=== PATIENT | female | born 1990 | race Caucasian/White ===

== ENCOUNTER 2016-06-04 13:49 | Observation (INO) | payer MEDICAID ==
[~2016-06-04] VITALS: Ht 172.7 cm; Wt 120.7 kg
[~2016-06-04 13:49] MED LIST: NITR100C
[2016-06-04] MEDS ORDERED: FERR-63 PO (15:02)
[2016-06-04] MEDS ORDERED: PNV1TABL76 PO (15:02)
[2016-06-04] MEDS ORDERED: FOLI-43 PO (15:02)
[2016-06-04] MEDS ORDERED: OCD PO (15:02)
== END 2016-06-04 15:45 | disposition home or self-care (01) ==
LOC: L&D 13:49
PROVIDERS: ADMIT Obstetrics & Gynecology; ATTEND Obstetrics & Gynecology
DX: Z34.90 Encounter for supervision of normal pregnancy, unspecified, unspecified trimester (principal)
CPT/HCPCS: 99281; G0378

== ENCOUNTER 2023-07-03 14:14 | Emergency (ER) | payer MEDICAID ==
[~2023-07-03 14:14] MED LIST changes: +FERR-63 PO; +FOLI-43 PO; -NITR100C; +OCD PO; +PNV1TABL76 PO
[2023-07-03 14:42] VITALS: PULSE 79; RESP 18
== END 2023-07-03 15:20 | disposition left against medical advice (07) ==
LOC: ER 14:14
DX: S61.211A Laceration without foreign body of left index finger without damage to nail, initial encounter (principal); X58.XXXA Exposure to other specified factors, initial encounter; Y93.89 Activity, other specified; Y92.89 Other specified places as the place of occurrence of the external cause; Y99.8 Other external cause status; Z53.21 Procedure and treatment not carried out due to patient leaving prior to being seen by health care provider
CPT/HCPCS: 99281